=== PATIENT | female | born 1990 | race Two or more races ===

== ENCOUNTER 2016-08-14 15:42 | Emergency (ER) | payer OTHER ==
[2016-08-14] MEDS ORDERED: ONDANSETRON 4 MG ODT TAB ONE (16:32)
== END 2016-08-14 17:23 | disposition home or self-care (01) ==
LOC: ED 15:42
DX: O98.513 Other viral diseases complicating pregnancy, third trimester (principal); J11.1 Influenza due to unidentified influenza virus with other respiratory manifestations

== ENCOUNTER 2016-11-07 09:34 | Outpatient (CLI) | payer OTHER ==
[2016-11-07] MEDS ORDERED: ONDANSETRON 4 MG/2ML 2 ML VIAL IV ONE (10:49)
[2016-11-07 10:57] VITALS: BMI 35.2
[2016-11-07] MEDS ORDERED: LACTATED RINGERS 1,000 ML IV SCH (11:00)
[2016-11-07 11:34] LABS: HEMATOCRIT 29.6 % (37.0-47.0); HEMOGLOBIN 9.1 gm/l (12.0-16.0); MEAN CELL VOLUME 82.9 fl (81.0-99.0); MEAN CORPUSCULAR HEMOGLOBIN 25.5 pg (27.0-31.0); MEAN CORPUSCULAR HGB CONC 30.7 g/dl (33.0-37.0); RED CELL DISTRIBUTION WIDTH 16.6 % (11.5-14.5)
== END 2016-11-07 12:30 ==
LOC: FBCOUT 09:34 → FBC 09:37 → FBCOUT 12:30
PROVIDERS: ATTEND Obstetrics & Gynecology
DX: O47.1 False labor at or after 37 completed weeks of gestation (principal); O99.013 Anemia complicating pregnancy, third trimester; O26.893 Other specified pregnancy related conditions, third trimester; G40.909 Epilepsy, unspecified, not intractable, without status epilepticus; R11.2 Nausea with vomiting, unspecified; Z3A.39 39 weeks gestation of pregnancy
CPT/HCPCS: 96374; 96360; 96361; 85027; 59025; J2405; G0463